=== PATIENT | male | born 1980 | race Caucasian/White ===

== ENCOUNTER 2023-10-27 13:39 | Emergency (ER) | payer MEDICAID ==
[~2023-10-27] VITALS: Ht 162.6 cm; Wt 72.7 kg
[~2023-10-27 13:39] MED LIST: CLINDAMYCIN HC150 MG PO; CLINDAMYCIN150 MG PO; CLINDAMYCIN300 MG PO; FLEXERIL 1010 MG/TAB PO; IBU600 MG PO; LORTAB 5/500 501 TAB PO; LORTAB 7.5/5001 TAB PO; MOTRIN800 MG PO; NAPROSYN500 MG PO; NO HOME MEDICATIONS; NORCO 325 MG-51 TAB PO; NORCO 325 MG-7.1 TAB PO; PHENERGAN 25 TA25 MG PO; PHENERGAN W/CO120 M1 PO; SEPTRA DS 8001 TAB PO; ZITHROMAX Z PA250 MG PO
[2023-10-27 14:10] VITALS: TEMP 97.9
[2023-10-27] MEDS ORDERED: CEPHALEXIN500 M1 PO (15:59)
[2023-10-27] MEDS ORDERED: NORCO 325 MG-51 TAB PO (16:11)
[2023-10-27 16:36] VITALS: BP 111/74; PULSE 71
== END 2023-10-27 16:36 | disposition home or self-care (01) ==
LOC: COL.ER 13:39
DX: S62.630B Displaced fracture of distal phalanx of right index finger, initial encounter for open fracture (principal); W31.2XXA Contact with powered woodworking and forming machines, initial encounter